=== PATIENT | female | born 1955 | race Caucasian/White ===

== ENCOUNTER → 2024-04-25 | Outpatient (REF) | payer MEDICARE | LOC: US 09:37 | PROVIDERS: ATTEND Urology | DX: R31.21 Asymptomatic microscopic hematuria (principal); N39.0 Urinary tract infection, site not specified | CPT/HCPCS: 76770; 76857 ==

== ENCOUNTER → 2025-03-21 | Day surgery (SDC) | payer MEDICARE ==
[2025-03-15 08:29] LABS: BASOPHILS % 0.7 % (0.0-1.0); EOSINOPHILS % 1.1 % (0.0-6.0); LYMPHOCYTES % 27.5 % (18.0-39.1); MONOCYTES % 15.4 % (4.4-11.3); NEUTROPHILS % 54.9 % (38.7-80.0); RED CELL DISTRIBUTION WIDTH 12.4 % (11.7-14.4)
[2025-03-15 08:50] LABS: EST GLOMERULAR FILTRATION RATE 95.0 ML/MIN (>=60)
[~2025-03-21] MED LIST: B12 INJ; BACLOFEN20 MG PO; CALCIUM W/D3; CYCLOPENTOLATE HCL 2% OPTH SOLN 2 ML BTL OP ONE; FENTANYL CITRATE/PF 100MCG/2 ML INJ ONE; GATIFLOXACIN(OPTH) 5 ML LIQD ONE; GLYCOPYRROLATE INJ 0.2 MG/ML VIAL ONE; IRON325 M1; LASIX20 MG PO; LATANOPROST2.5 ML OP; LIDOCAINE HCL 2% LOCAL INJ 5 ML SDV VIAL INJ ONE; LIPITOR20 MG PO; LOVENOX60 MG/0.6 SC; METOPROLOL TART50 MG PO; MIDAZOLAM HCL 2 MG/2 ML VIAL ONE; NEURONTIN400 MG PO; OMEGA 3 1,0001 EACH PO; OMEPRAZOLE40 MG PO; OXYBUTYNIN CHLOR5 MG PO; PHENYLEPHRINE HCL 2 ML DROPS ONE; POTASSIUM CHLO20 ME1 PO; PROPOFOL IV EMULSION 10 MG/ML 20 ML VIAL ONE; TURMERIC500 M1; TYLENOL EXTRA500 M2; XARELTO20 MG PO
[2025-03-21] MEDS: LACTATED RINGER'S 1,000 ML ONE (09:21)
[2025-03-21 12:36] VITALS: TEMP 97.2
[2025-03-21 13:05] VITALS: BP 133/82; PULSE 74; RESP 18; O2SAT 100
== END | disposition home or self-care (01) ==
LOC: OR 07:53
PROVIDERS: ATTEND Ophthalmology
DX: H25.11 Age-related nuclear cataract, right eye (principal); I10 Essential (primary) hypertension; E78.5 Hyperlipidemia, unspecified; G89.29 Other chronic pain; F41.9 Anxiety disorder, unspecified; Z88.6 Allergy status to analgesic agent; Z88.1 Allergy status to other antibiotic agents; Z88.0 Allergy status to penicillin; Z88.8 Allergy status to other drugs, medicaments and biological substances; Z01.810 Encounter for preprocedural cardiovascular examination; Z01.812 Encounter for preprocedural laboratory examination; Z79.02 Long term (current) use of antithrombotics/antiplatelets; Z79.899 Other long term (current) drug therapy
CPT/HCPCS: 36415; 66984; 80048; 85025; 93005; J2003; J2250; J2704; J3010; J7121; V2632